=== PATIENT | male | born 1940 | race Caucasian/White ===

== ENCOUNTER 2019-01-06 08:35 | Day surgery (SDC) | payer MEDICARE ==
[~2019-01-06] VITALS: Ht 172.7 cm; Wt 97.1 kg
[~2019-01-06 08:35] MED LIST: ASPI81TA26 PO; ATOR1TAB21 PO; BALANCED SALT IRRIGATION SOLUTION 500ML BAG (FOR OR EYE MACHINE) As Ordered ONE; CEFUROXIME 1MG/0.1ML INTRACAMERAL INJ As Ordered ONE; CHLO125TA PO; DUOVISC (0.50ML VISCOAT/0.55ML PROVISC) OPHTH KIT As Ordered ONE; GABA600T4 PO; LEVO50TA5 PO; LIDOCAINE 0.75%/EPINEPHRINE 0.025% IN BSS 1ML SYR INTRACAMERAL (OR ONLY) As Ordered ONE; LISI-1046 PO; METF-791 PO; NITR0.4S14 PO; OFLOXACIN 0.3 % (OCUFLOX) OPTH SOL 5ML OS ONE; OXYB10TA23 PO; PANT20TA2 PO; PHENYLEPHRINE 2.5% OPHTH SOL 2ML OS ONE; POTA1TAB23 PO; POVIDONE-IODINE 5% OPHTH PREP SOL 30ML As Ordered ONE; PRESCAP PO; PROPARACAINE 0.5% OPHTH SOL 15ML OS ONE; TIZA2TA PO; TROPICAMIDE 1% OPHTH SOLN 2ML OS ONE; VITACAP8 PO
[2019-01-06] MEDS ORDERED: MIDAZOLAM INJ 2 MG/2 ML VIAL (J2250) As Ordered ONE (10:03)
[2019-01-06] MEDS ORDERED: fentaNYL 100 MCG/2 ML INJECTION (J3010) As Ordered ONE (10:03)
[2019-01-06 10:55] VITALS: BP 144/73
[2019-01-06] MEDS ORDERED: ONDANSETRON 4MG/2ML VIAL (J2405) IV PRN (11:00)
--- NOTE | 2019-01-07 17:29 | RO ---
DATE OF PROCEDURE: 01/06/2019 PREOPERATIVE DIAGNOSIS: 1. Visually significant nuclear sclerotic cataract left eye. POSTOPERATIVE DIAGNOSIS: 1. Visually significant nuclear sclerotic cataract left eye. PROCEDURE: 1. Cataract extraction with use of phacoemulsification and placement of intraocular lens, AU00T0, 21.0 D, left eye. SURGEON: Alirio Casiano DO FINISHER MAP AND CHART: None. ANESTHESIA: Local with monitored anesthesia care (MAC). COMPLICATIONS: None. POSTOPERATIVE CONDITION: Stable. INDICATIONS FOR SURGERY: 1. Blurred vision affecting patients activities of daily living. DESCRIPTION OF PROCEDURE: The patient was seen in the preoperative area and properly identified. The correct operative eye was identified and marked. The patient received topical anesthetic, antibiotics, and topical dilating drops. The patient was then transferred to the operating room. The correct side was re-identified, and a time-out was performed. The eye was prepped and draped in a sterile fashion. The eyelids were isolated with Tegaderm tape, and the lids were held open with an adjustable speculum. A 1.0 mm paracentesis incision was made. Intraocular preservative-free Shugarcaine was then injected into the anterior chamber. Viscoelastic was then injected into the anterior chamber through the paracentesis. Using a 2.4 mm sharp-tipped keratome, the anterior chamber was entered via a temporal clear cornea incision. A continuous curvilinear capsulorrhexis was created with Utrata forceps. Hydrodissection was performed with balanced salt solution (BSS) on a blunt cannula until the nucleus was able to rotate freely. The crystalline lens was phacoemulsified and aspirated. Irrigation/aspiration was used to remove the cortical material. Cohesive viscoelastic was placed into the capsular bag to deepen it. The implant was placed into the capsular bag and allowed to unfold. Placement was confirmed by visualizing the anterior capsulorrhexis. Irrigation/aspiration was used to remove the viscoelastic. The clear corneal incision was hydrated with BSS on a blunt cannula. The lens was well positioned. The incisions were then tested for leaks and found to be negative. The eye was then palpated for appropriate pressure and adjusted accordingly with BSS. The eyelid speculum was then carefully removed. A shield was placed over the eye. The patient tolerated the procedure well and was discharged to the recovery unit in a stable condition.
== END 2019-01-06 11:10 | disposition home or self-care (01) ==
LOC: M SDC 08:35
PROVIDERS: ATTEND Ophthalmology
DX: H25.12 Age-related nuclear cataract, left eye (principal); I10 Essential (primary) hypertension; E78.49 Other hyperlipidemia; E03.9 Hypothyroidism, unspecified; E11.9 Type 2 diabetes mellitus without complications; I71.4 Abdominal aortic aneurysm, without rupture; M10.9 Gout, unspecified; Z79.82 Long term (current) use of aspirin; Z79.899 Other long term (current) drug therapy; K21.9 Gastro-esophageal reflux disease without esophagitis; F41.9 Anxiety disorder, unspecified; N40.0 Benign prostatic hyperplasia without lower urinary tract symptoms
CPT/HCPCS: 66984; J2250; J3010; V2632

== ENCOUNTER 2019-01-20 11:25 | Day surgery (SDC) | payer MEDICARE ==
[~2019-01-20] VITALS: Ht 170.2 cm; Wt 98.4 kg
[~2019-01-20 11:25] MED LIST changes: -LIDOCAINE 0.75%/EPINEPHRINE 0.025% IN BSS 1ML SYR INTRACAMERAL (OR ONLY) As Ordered ONE; +LIDOCAINE 1% SDV 5 ML VIAL As Ordered ONE; +OFLOXACIN 0.3 % (OCUFLOX) OPTH SOL 5ML OD ONE; -OFLOXACIN 0.3 % (OCUFLOX) OPTH SOL 5ML OS ONE; +OXYB10TA2 PO; -OXYB10TA23 PO; +PHENYLEPHRINE 2.5% OPHTH SOL 2ML OD ONE; -PHENYLEPHRINE 2.5% OPHTH SOL 2ML OS ONE; +PROPARACAINE 0.5% OPHTH SOL 15ML OD ONE; -PROPARACAINE 0.5% OPHTH SOL 15ML OS ONE; +TROPICAMIDE 1% OPHTH SOLN 2ML OD ONE; -TROPICAMIDE 1% OPHTH SOLN 2ML OS ONE
[2019-01-20] MEDS ORDERED: MIDAZOLAM INJ 2 MG/2 ML VIAL (J2250) As Ordered ONE (12:36)
[2019-01-20] MEDS ORDERED: fentaNYL 100 MCG/2 ML INJECTION (J3010) As Ordered ONE (12:36)
[2019-01-20 14:50] VITALS: BP 171/83
--- NOTE | 2019-01-22 20:41 | RO ---
DATE OF PROCEDURE: 01/20/2019 PREOPERATIVE DIAGNOSIS: 1. Visually significant nuclear sclerotic cataract right eye. POSTOPERATIVE DIAGNOSIS: 1. Visually significant nuclear sclerotic cataract right eye. PROCEDURE: 1. Cataract extraction with use of phacoemulsification and placement of intraocular lens, AU00T0, 20.5 D, right eye. SURGEON: Alirio Casiano DO MORNING NEWS ANCHOR: None. ANESTHESIA: Local with monitored anesthesia care (MAC). COMPLICATIONS: None. POSTOPERATIVE CONDITION: Stable. INDICATIONS FOR SURGERY: 1. Blurred vision affecting patients activities of daily living. DESCRIPTION OF PROCEDURE: The patient was seen in the preoperative area and properly identified. The correct operative eye was identified and marked. The patient received topical anesthetic, antibiotics, and topical dilating drops. The patient was then transferred to the operating room. The correct side was re-identified, and a time-out was performed. The eye was prepped and draped in a sterile fashion. The eyelids were isolated with Tegaderm tape, and the lids were held open with an adjustable speculum. A 1.0 mm paracentesis incision was made. Intraocular preservative-free Shugarcaine was then injected into the anterior chamber. Viscoelastic was then injected into the anterior chamber through the paracentesis. Using a 2.4 mm sharp-tipped keratome, the anterior chamber was entered via a temporal clear cornea incision. A continuous curvilinear capsulorrhexis was created with Utrata forceps. Hydrodissection was performed with balanced salt solution (BSS) on a blunt cannula until the nucleus was able to rotate freely. The crystalline lens was phacoemulsified and aspirated. Irrigation/aspiration was used to remove the cortical material. Cohesive viscoelastic was placed into the capsular bag to deepen it. The implant was placed into the capsular bag and allowed to unfold. Placement was confirmed by visualizing the anterior capsulorrhexis. Irrigation/aspiration was used to remove the viscoelastic. The clear corneal incision was hydrated with BSS on a blunt cannula. The lens was well positioned. The incisions were then tested for leaks and found to be negative. The eye was then palpated for appropriate pressure and adjusted accordingly with BSS. The eyelid speculum was then carefully removed. A shield was placed over the eye. The patient tolerated the procedure well and was discharged to the recovery unit in a stable condition.
== END 2019-01-20 15:05 | disposition home or self-care (01) ==
LOC: M SDC 11:25
PROVIDERS: ATTEND Ophthalmology
DX: H25.11 Age-related nuclear cataract, right eye (principal); E11.9 Type 2 diabetes mellitus without complications; K21.9 Gastro-esophageal reflux disease without esophagitis; I10 Essential (primary) hypertension; I71.4 Abdominal aortic aneurysm, without rupture; N40.0 Benign prostatic hyperplasia without lower urinary tract symptoms; F41.9 Anxiety disorder, unspecified; Z79.82 Long term (current) use of aspirin; Z79.84 Long term (current) use of oral hypoglycemic drugs; E03.9 Hypothyroidism, unspecified
CPT/HCPCS: 66984; J2250; J3010; V2632

== ENCOUNTER 2019-12-29 14:10 | Inpatient (IN) | payer MEDICARE ==
[~2019-12-29] VITALS: Ht 172.7 cm; Wt 96.2 kg
[~2019-12-29 14:10] MED LIST changes: -BALANCED SALT IRRIGATION SOLUTION 500ML BAG (FOR OR EYE MACHINE) As Ordered ONE; -CEFUROXIME 1MG/0.1ML INTRACAMERAL INJ As Ordered ONE; -DUOVISC (0.50ML VISCOAT/0.55ML PROVISC) OPHTH KIT As Ordered ONE; -LIDOCAINE 1% SDV 5 ML VIAL As Ordered ONE; -LISI-1046 PO; +LISI2.5T2 PO; -METF-791 PO; +METF-838 PO; -OFLOXACIN 0.3 % (OCUFLOX) OPTH SOL 5ML OD ONE; -OXYB10TA2 PO; +OXYB10TA23 PO; -PANT20TA2 PO; +PANT20TA6 PO; -PHENYLEPHRINE 2.5% OPHTH SOL 2ML OD ONE; -POVIDONE-IODINE 5% OPHTH PREP SOL 30ML As Ordered ONE; -PROPARACAINE 0.5% OPHTH SOL 15ML OD ONE; -TROPICAMIDE 1% OPHTH SOLN 2ML OD ONE
[2019-12-29] MEDS ORDERED: ONDANSETRON 4MG/2ML VIAL IV ONE (14:45)
[2019-12-29 15:30] LABS: BASO # 0.1 10^3/uL (0.0-0.2); BASO % 0.3 % (0.0-1.0); EOS % 0.1 % (0.0-3.0); HEMOGLOBIN 11.8 g/dl (13.5-17.5); LYMPH # 1.2 10^3/uL (1.5-5.0); LYMPH % 5.4 % (24.0-44.0); MEAN CORPUSCULAR HEMOGLOBIN 29.6 pg (27.0-33.0); MEAN CORPUSCULAR HGB CONC 31.1 g/dl (32.0-36.5); MEAN CORPUSCULAR VOLUME 95.5 fl (80.0-96.0); MONO % 4.7 % (0.0-5.0); NEUTROPHILS # 19.2 10^3/uL (1.5-8.5); NEUTROPHILS % 88.2 % (36.0-66.0); PLATELET COUNT, AUTOMATED 345 10^3/uL (150-450); RED BLOOD COUNT 3.98 10^6/uL (4.30-6.10); WHITE BLOOD COUNT 21.7 10^3/uL (4.0-10.0)
[2019-12-29] MEDS ORDERED: ISOVUE-370 76% 100ML VIAL As Ordered ONE (15:34)
[2019-12-29 15:50] LABS: ALBUMIN 3.2 GM/DL (3.2-5.2); BILIRUBIN,DIRECT 0.1 MG/DL (0.0-0.2); BILIRUBIN,TOTAL 0.3 MG/DL (0.2-1.0)
[2019-12-29] MEDS: MORPHINE 2 MG/ML 1ML VIAL (J2270) IV PRN ×2 (15:54→16:41)
--- NOTE | 2019-12-29 16:23 | REPVR ---
PROCEDURE INFORMATION: Exam: CT Angiography Abdomen and Pelvis With Contrast Exam date and time: 12/29/2019 3:30 PM Age: 79 years old Clinical indication: Pain and condition or disease; Arterial aneurysm; Without rupture; Abdominal pain; Generalized; Additional info: Known aaa, R/O dissection TECHNIQUE: Imaging protocol: Computed tomographic angiography of the abdomen and pelvis with intravenous contrast material. 3D rendering (Not supervised by radiologist): MIP and/or 3D reconstructed images were created by the technologist. Radiation optimization: All CT scans at this facility use at least one of these dose optimization techniques: automated exposure control; mA and/or kV adjustment per patient size (includes targeted exams where dose is matched to clinical indication); or iterative reconstruction. Contrast material: ISOVUE 370; Contrast volume: 100 ml; Contrast route: INTRAVENOUS (IV); COMPARISON: No relevant prior studies available. FINDINGS: Lungs: Is mild dependent atelectasis. Aorta: The infrarenal aorta is aneurysmal measuring 4.7 x 4.6 cm in diameter. No dissection. No rupture. Celiac trunk and mesenteric arteries: No occlusion or significant stenosis. Renal arteries: No occlusion or significant stenosis. Right iliac arteries: No occlusion or significant stenosis. Left iliac arteries: No occlusion or significant stenosis. Liver: There is an 11 mm left lobe hypodensity within the liver likely a cyst within the limits of arterial phase scanning. Gallbladder and bile ducts: The gallbladder is normal.No calcified calculi. Normal bile ducts. Pancreas: The pancreas is normal. Spleen: The spleen is normal. Adrenals: The adrenals are normal. The adrenals are normal. Kidneys and ureters: There is a left renal hemorrhage. Series 401 images 55-57 demonstrate a renal hypodensity. Lateral to this is extensive subcapsular hematoma which has ruptured into the perinephric space and into the retroperitoneum. There is a fat containing area within the area of hemorrhage which may be an underlying mass. As well seen on series 402 images 47 to 52 there is hyperdensity within the hemorrhage likely extravasated contrast indicating active bleeding. The focal subcapsular hematoma measures up to 11 cm. The blood than ruptures into the retroperitoneum extending inferiorly into the pelvis. Stomach and bowel: There are colonic diverticula. No bowel wall thickening or distention. Appendix: The appendix is well visualized and is normal. Intraperitoneal space: See "Kidneys and ureters" finding. Lymph nodes: Unremarkable. No enlarged lymph nodes. Bladder: There is diffuse bladder wall thickening. No focal wall thickening identified. No calculus. Reproductive: Unremarkable as visualized. Bones/joints: There is multilevel osteophytes in the lumbar spine. Ankylosis of the spine is seen extending from the thoracic spine, superior to the area scanned, inferiorly to reach L1. There is an acute fracture across the anterior cortex of T8. This extends inferiorly and posteriorly to reach the inferior endplate of T8. No extension through the posterior cortex. No displacement. No additional fractures are seen. 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 Soft tissues: Unremarkable IMPRESSION: 1. Very large, 11 cm, subcapsular hematoma with rupture into the retroperitoneum. There are foci of apparent extravasated contrast which would indicate active bleeding. This appears secondary to a hemorrhagic mass which contains fat most consistent with an angiomyolipoma. 2. There is an acute fracture of the T8 vertebra. 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 No displacement. Correlate for any history of recent trauma. 3. 4.7 cm infrarenal aortic aneurysm without rupture or dissection. THIS REPORT CONTAINS FINDINGS THAT MAY BE CRITICAL TO PATIENT CARE. The findings of large left renal hemorrhagic mass with subcapsular hematoma, active bleeding and retroperitoneal extension were verbally communicated via telephone conference with IRINEO MELÉNDEZ at 4:08 p.m. EDT on 12/29/2019, prior to finalizing report.. The findings were acknowledged and understood.. Additional clinical information obtained from , indicates there has been a recent scan, not available for my review which demonstrated a left renal mass which contains fat. There was no hemorrhage reported on the prior report. Electronically signed by: Sylvester Bailey On 12/29/2019 16:23:21 PM
[2019-12-29] MEDS ORDERED: MORPHINE 4 MG/ML 1ML VIAL/SYRINGE (J2270) IV PRN (18:45)
[2019-12-29] MEDS ORDERED: ATOR40TA75 PO (19:29)
[2019-12-29] MEDS ORDERED: PROAAER10 INH (19:29)
[2019-12-29] MEDS ORDERED: fentaNYL 100 MCG/2 ML INJECTION (J3010) IV PRN (20:00)
[2019-12-29] MEDS ORDERED: ACETAMINOPHEN TAB 650MG DOSE (2X325MG) PO PRN (20:15)
[2019-12-29] MEDS ORDERED: MOM 30ML SUSPENSION UDC PO PRN (20:15)
[2019-12-29] MEDS: GABAPENTIN 300 MG CAP PO SCH (21:00)
[2019-12-29 21:29] LABS: INR 1.06
[2019-12-29 21:30] LABS: ALBUMIN 3.4 GM/DL (3.2-5.2); ALT/SGPT 27 U/L (12-78); BILIRUBIN,TOTAL 0.4 MG/DL (0.2-1.0); BLOOD UREA NITROGEN 17 MG/DL (7-18); CALCIUM LEVEL 9.6 MG/DL (8.8-10.2); CARBON DIOXIDE LEVEL 28 MEQ/L (21-32); CHLORIDE LEVEL 104 MEQ/L (98-107); CREATININE FOR GFR 1.62 MG/DL (0.70-1.30); FERRITIN 126 NG/ML (26-388); GLUCOSE, FASTING 180 MG/DL (70-100); IRON (FE) 26 UG/DL (65-175); PERCENT SATURATION 9.3 % (19.7-50.0); POTASSIUM SERUM 4.5 MEQ/L (3.5-5.1); SODIUM LEVEL 138 MEQ/L (136-145); TOTAL IRON BINDING CAPACITY 279 UG/DL (250-450); TOTAL PROTEIN 6.5 GM/DL (6.4-8.2)
[2019-12-29 21:50] VITALS: BP 167/77
[2019-12-29 22:00] VITALS: BP 150/74
[2019-12-29] MEDS ORDERED: LR 1,000 ML IV SCH (22:45)
[2019-12-29 23:00] VITALS: BP 116/56
[2019-12-29] MEDS ORDERED: GLUCOSE 4GM CHEW TABLET PO PRN (23:00)
[2019-12-29] MEDS ORDERED: DEXTROSE 50% 50 ML SYRINGE IV PRN (23:00)
[2019-12-29] MEDS ORDERED: GLUCAGON INJ 1MG VIAL SC PRN (23:00)
[2019-12-29] MEDS ORDERED: NITROGLYCERIN 0.4 MG SUBL TABLET SL PRN (23:00)
--- NOTE | 2019-12-29 23:03 | HPEPDOC ---
[facility] Medical History & Physical Date of Admission Dec 29, 2019 Date of Service: Dec 29, 2019 Primary Care Physician: Rich Damian MD Attending Physician: WERNER AMAYA MD History and Physical TIME OF SERVICE: 800PM CHIEF COMPLAINT: back pain HISTORY OF PRESENT ILLNESS: This 79 yr old M presented w c/o of 10/10 in severity terrible back pain which he went on to describe as the worst pain Antoinette had in my life for about 2-3 weeks. The back and side pain improved to 7/10 after receiving morphine in the ER, is constant, aching in nature and worse when he moves his legs. This morning the pain was so bad that he felt dizzy, and passed out for about 1.5 min. He denies hitting his head but admits to landing on his back. He takes ASA. REVIEW OF SYSTEMS: 12 point review of systems negative except as listed in HPI PAST MEDICAL/ SURGICAL HISTORY: Left Renal angiomyolipoma AAA COPD Chronic CAD / hx of [place] in 2011 Dyslipidemia Pre-DM Chronic Back pain 2/2 OA CKD 3 Hypothyroidism Obesity Cataract Surgery SOCIAL HISTORY: -Tobacco quit / -Alcohol / - Drugs FAMILY HISTORY: CAD / DM / Cancer / Hypothyroidism ALLERGIES: Please see below. HOME MEDICATIONS: Please see below. PHYSICAL EXAMINATION: VITAL SIGNS: Please see below. GENERAL APPEARANCE: well-nourished / well developed / NAD HEENT: EOMI/ MMM&P CARDIOVASCULAR: tachycardic HR 100 -103 during exam /NMRG LUNGS: CTAB on RA ABDOMEN: obese / soft & NT w palpation MUSCULOSKELETAL: has difficulties sitting up without assistance bc of back pain / RADHA x 4 extremities / back is not tender with palpation INTEGUMENT: no bruises on back / no generalized pallor NEUROLOGICAL: CN 2-12 grossly intact/ speech not dysarthric PSYCHIATRIC: A&O x3 able to understand and follow all commands LABORATORY DATA: 12/29/19 15:09 Immature Granulocyte % (Auto) 1.3, Neutrophils (%) (Auto) 88.2H, Lymphocytes (%) (Auto) 5.4L, Monocytes (%) (Auto) 4.7, Eosinophils (%) (Auto) 0.1, Basophils (%) (Auto) 0.3, Neutrophils # (Auto) 19.2H, Lymphocytes # (Auto) 1.2L, Monocytes # (Auto) 1.0H, Eosinophils # (Auto) 0.0, Basophils # (Auto) 0.1, Nucleated Red Blood Cells % (auto) 0.0, Total Bilirubin 0.3, Direct Bilirubin 0.1, Aspartate Amino Transf (AST/SGOT) 21, Alanine Aminotransferase (ALT/SGPT) 26, Alkaline Phosphatase 91, Total Protein 6.0L, Albumin 3.2, Albumin/Globulin Ratio 1.1, Lipase 68L 12/29/19 20:54: Total Bilirubin 0.4, Aspartate Amino Transf (AST/SGOT) 24, Alanine Aminotransferase (ALT/SGPT) 27, Alkaline Phosphatase 95, Total Protein 6.5, Albumin 3.4, Albumin/Globulin Ratio 1.1, Prothrombin Time 14.0, Prothromb Time International Ratio 1.06, Anion Gap 6L, Glomerular Filtration Rate 44.0, Lactic Acid Level 5.0*H, Calcium Level 9.6, Iron Level 26L, Total Iron Binding Capacity 279, Transferrin % Saturation 9.3L, Ferritin 126 IMAGING: CT angio abdomen 1. Very large, 11 cm, subcapsular hematoma with rupture into the retroperitoneum. There are foci of apparent extravasated contrast which would indicate active bleeding. This appears secondary to a hemorrhagic mass which contains fat most consistent with an angiomyolipoma. 2. There is an acute fracture of the T8 vertebra. 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 No displacement. Correlate for any history of recent trauma. 3. 4.7 cm infrarenal aortic aneurysm without rupture or dissection. MICROBIOLOGY: 12/29/19 Blood Culture, Received Pending ASSESSMENT: is a 79 yr old w a hx of CKD 3 and left renal angiomyolipoma who presented w c/o acute worsening of his back pain and was found to have a subcapsular hematoma. PLAN: 1. Subcapsular hematoma / Left Renal angiomyolipoma Plan: admit to ICU / f/u serial Hg, coags / NPO w IVF / Uro consult / IR consult 2. 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 Acute blood loss anemia Plan: f/u serial Hg / Iron studies / type and cross match 4. Syncope Plan: telemetry / orthostats / IVF / f/u EKG & trop 5. SIRS SIRS criteria tachycardia & leukocytosis Plan: f/u UA, blood cx, lactic acid 6. 4.7 cm AAA Plan: day time team to consult Vascular 7. CKD 3 Plan: f/u BMP, UA ulytes, phosphorus, uric acid, PTH, vitamin & Hep panel / hold metformin and lisionpril to reduce risk of LAITH 8. COPD Plan: albuterol PRN 9. Chronic CAD / hx of [place] in 2011 Plan: hold ASA 10. Pre-DM Plan: FSBS, SSI w hypoglycemia protocol, A1C, metformin on hold 11. Dyslipidemia Plan: statin 12. Hypothyroidism Plan: levothyroxine 13. Chronic Back pain 2/2 OA Plan: pain meds 14. Obesity BMI 31.4 complicates care Plan: f/u w PCP for sleep apnea screening DVT Px w SCDs LATE ENTRY #Lactic Acidosis UA & blood cx pending Plan: monitor vitals / c/w IVF / trend lactic acid Home Medications Scheduled Albuterol Sulfate (Proair Hfa) 8.5 Gm Hfa.aer.ad, 2 PUFFS INH BID TAKES NOON/HS Aspirin (Aspirin EC) 81 Mg Tablet.dr, 81 MG PO DAILY Atorvastatin Calcium (Atorvastatin Calcium) 40 Mg Tablet, 40 MG PO DAILY Gabapentin (Gabapentin) 600 Mg Tablet, 600 MG PO TID Levothyroxine Sodium (Levothyroxine Sodium) 50 Mcg Tablet, 50 MCG PO DAILY TAKES AT NOON Lisinopril (Lisinopril) 2.5 Mg Tablet, 2.5 MG PO DAILY Metformin HCl (Metformin HCl ER) 500 Mg Tab.er.24h, 500 MG PO TID WITH MEALS Oxybutynin Chloride (Oxybutynin Chloride ER) 10 Mg Tab.er.24, 10 MG PO DAILY Potassium Chloride (Potassium Chloride) 10 Meq Tablet.er, 10 MEQ PO BID TAKES AM/NOON Tizanidine HCl (Tizanidine HCl) 2 Mg Tablet, 2 MG PO QHS Vit A/Vit C/Vit E/Zinc/Copper (Preservision Areds Softgel) 1 Each Capsule, 1 CAP PO BID TAKES AM/NOON Vitamin B Complex (Vitamin B Complex) 1 Each Capsule, 1 CAP PO DAILY Scheduled PRN Nitroglycerin (Nitroglycerin) 0.4 Mg Tab.subl, 0.4 MG PO PRN PRN for CHEST PAIN Allergies Coded Allergies: No Known Allergies (Verified , 01/20/19) A-FIB/CHADSVASC A-FIB History Current/History of A-Fib/PAF?: No Current PO Anticoag Therapy: No WERNER AMAYA MD Dec 29, 2019 23:03
[2019-12-29 23:26] LABS: TROPONIN I < 0.02 NG/ML (< 0.10)
[2019-12-30] VITALS (29 sets, daily range): BP systolic 102–161; BP diastolic 54–84
[2019-12-30 04:21] LABS: HEMATOCRIT 30.4 % (42.0-52.0); HEMOGLOBIN 9.6 g/dl (13.5-17.5); MEAN CORPUSCULAR HEMOGLOBIN 29.6 pg (27.0-33.0); MEAN CORPUSCULAR HGB CONC 31.6 g/dl (32.0-36.5); MEAN CORPUSCULAR VOLUME 93.8 fl (80.0-96.0); PLATELET COUNT, AUTOMATED 280 10^3/uL (150-450); RED BLOOD COUNT 3.24 10^6/uL (4.30-6.10); WHITE BLOOD COUNT 16.6 10^3/uL (4.0-10.0)
[2019-12-30 04:50] LABS: CALCIUM LEVEL 8.9 MG/DL (8.8-10.2); CREATININE FOR GFR 1.75 MG/DL (0.70-1.30); GLOMERULAR FILTRATION RATE 40.2 (>42); MAGNESIUM LEVEL 1.8 MG/DL (1.8-2.4); POTASSIUM SERUM 5.1 MEQ/L (3.5-5.1)
[2019-12-30 04:52] LABS: PHOSPHORUS LEVEL 4.6 MG/DL (2.5-4.9); URIC ACID 6.8 MG/DL (3.5-7.2)
[2019-12-30 05:04] LABS: PTH INTACT 61.7 PG/ML (18.5-88.0)
[2019-12-30 05:16] LABS: HEPATITIS B SURFACE ANTIGEN NEGATIVE (NEGATIVE)
[2019-12-30 05:43] LABS: HEPATITIS C VIRUS ABY INDEX 0.2 INDEX (<0.8)
[2019-12-30 05:44] LABS: HEPATITIS B CORE ANTIBODY IGM NEGATIVE (NEGATIVE)
[2019-12-30 05:45] LABS: HEPATITIS A ANTIBODY IGM NEGATIVE (NEGATIVE)
[2019-12-30] MEDS: LEVOTHYROXINE 50MCG TABLET (0.05MG) PO SCH (05:48)
[2019-12-30 06:29] LABS: APPEARANCE, URINE CLEAR (CLEAR); BACTERIA, URINE AUTO NEGATIVE (NEGATIVE); BILIRUBIN, URINE AUTO NEGATIVE (NEGATIVE); BLOOD, URINE BLOOD NEGATIVE (NEGATIVE); COLOR, URINE YELLOW (YELLOW); GLUCOSE, URINE (UA) AUTO NEGATIVE (NEGATIVE); KETONE, URINE AUTO NEGATIVE (NEGATIVE); LEUKOCYTE ESTERASE, URINE AUTO NEGATIVE (NEGATIVE); MUCUS, URINE SMALL (NEGATIVE); NITRITE, URINE AUTO NEGATIVE (NEGATIVE); PROTEIN, URINE AUTO 1+ mg/dL (NEGATIVE); RBC, URINE AUTO 6 /HPF (0-3); SQUAMOUS EPITHELIAL CELL UR AU 4 /HPF (0-6); UROBILINOGEN, URINE AUTO 0.2 mg/dL (0.0-2.0); WBC, URINE AUTO 7 /HPF (0-3)
[2019-12-30 06:37] LABS: SPECIFIC GRAVITY URINE AUTO >1.060 (1.002-1.035)
[2019-12-30 06:43] LABS: SODIUM,RANDOM URINE < 10 MEQ/L; UREA NITROGEN RANDOM URINE 227 MG/DL
[2019-12-30] MEDS: ALBUTEROL 90 MCG/ACT 8GM HFA INHALER INH SCH ×2 (07:14→19:55)
[2019-12-30] MEDS ORDERED: fentaNYL 100 MCG/2 ML INJECTION (J3010) As Ordered ONE (07:19)
[2019-12-30] MEDS ORDERED: MIDAZOLAM INJ 2MG/2ML VIAL (J2250 PER 1MG) As Ordered ONE (07:19)
[2019-12-30] MEDS ORDERED: diphenhydrAMINE 50MG/ML VIAL (J1200) As Ordered ONE (07:19)
[2019-12-30] MEDS ORDERED: ISOVUE-300 61% 50ML VIAL As Ordered ONE ×3 (07:19→09:08)
[2019-12-30] MEDS ORDERED: LIDOCAINE 1% MDV 20ML VIAL As Ordered ONE (07:20)
[2019-12-30] MEDS ORDERED: EMBOSPHERE MICROSPHERES As Ordered ONE ×2 (08:09)
[2019-12-30] MEDS ORDERED: EMBOSPHERE MICROSPHERES 500-700UM(MICRONS) 2ML SYRINGE As Ordered ONE (08:10)
[2019-12-30] MEDS: GABAPENTIN 300 MG CAP PO SCH ×3 (11:36→20:45)
[2019-12-30] MEDS: ATORVASTATIN 20 MG TAB PO SCH (11:36)
[2019-12-30] MEDS: oxyBUTYnin *DITROPAN XL* 5 MG TABCR PO SCH (11:36)
[2019-12-30] MEDS ORDERED: ONDANSETRON 4MG/2ML VIAL IV PRN (11:45)
[2019-12-30] MEDS ORDERED: PERCOCET 5MG/325MG TAB PO PRN (11:45)
[2019-12-30] MEDS ORDERED: ALBUTEROL SULFATE 2.5 MG/0.5 ML INH NEB SOLN NEB PRN (16:30)
--- NOTE | 2019-12-30 16:31 | IPNPDOC ---
Text Note Date of Service The patient was seen on 12/30/19. NOTE SUBJECTIVE: Patient seen after he came back from IR. He says his pain is much better now. denies any nausea or vomtiing or diarrhea, No chest pain or SOB. at bedside brought his back brace and his leg brace which he uses during ambulation. PHYSICAL EXAMINATION: VITAL SIGNS: Please see below. GENERAL APPEARANCE: well-nourished / well developed / NAD HEENT: EOMI/ MMM, anicteric eyes. CARDIOVASCULAR: regular , normal S1, S2, no rub/ murmur or gallop LUNGS: CTAB on RA ABDOMEN: obese / soft & NT w palpation, Bowel sounds normal. MUSCULOSKELETAL: has difficulties sitting up without assistance bc of back pain / RADHA x 4 extremities, Has leg brace for walking. INTEGUMENT: no bruises on back / no generalized pallor NEUROLOGICAL: CN 2-12 grossly intact/ speech not dysarthric PSYCHIATRIC: A&O x3 able to understand and follow all commands Labs and radiology: reviewed Assessment and Plan: This 79 yr old M With PMH of left renal angiomyolipoma recently found out, CKD stage 3, AAA, COPD, CAD, HLD, Chronic back pain from OA, hypothyroidism, obesity who presented w c/o of /10 in severity terrible back pain which he went on to describe as the worst pain Antoinette had in my life for about 2-3 weeks. The morning of admission the pain was so bad that he felt dizzy, and passed out for about 1.5 min. He denied hitting his head but admits to landing on his back. CT scan showed Very large, 11 cm, subcapsular hematoma with rupture into the retroperitoneum. There are foci of apparent extravasated contrast which would indicate active bleeding. This appears secondary to a hemorrhagic mass which contains fat most consistent with an angiomyolipoma. There is an acute fracture of the T8 vertebra. 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 No displacement. Correlate for any history of recent trauma. 4.7 cm infrarenal aortic aneurysm without rupture or dissection. Ruptured Left Renal angiomyolipoma with subcapsular hematoma and retroperitoneal hematoma. with suspected active bleeding Patient went to IR for embolization of bleeding vessel. HH q6Hrs T8 acute fracture non displaced/ Chronic back pain with h/o back surgery possibly from the fall on his back pain control with percocet. Bowel regimen AAA 4.6x 4.7 cm stable. COPD home meds albuterol prn Diabetes hold metformin lispro as per sliding scale when eating regular diet. Chronic CAD / hx of [place] in 2011 will hold ASA for now continue statin Dyslipidemia statin CKD 3 creatinine seems to be stable will continue to monitor. Hypothyroidism Synthroid Obesity VS,Fishbone, I+O VS, Fishbone, I+O Laboratory Tests 12/29/19 15:09 12/29/19 20:54 12/30/19 04:09 Vital Signs Date Time Temp Pulse Resp B/P (MAP) Pulse Ox O2 Delivery O2 Flow Rate FiO2 12/30/19 10:25 93 20 100 Nasal Cannula 2 12/30/19 07:42 98.3 12/30/19 07:25 130/67 (88) I&O- Last 24 Hours up to 6 AM0 12/30/19 06:00 Intake Total 655 ml Output Total 350 ml Balance 305 ml DEMETRIO GRANT MD Dec 30, 2019 11:02
--- NOTE | 2019-12-30 18:08 | SMCUROLCON ---
Urology Consultation General Date of Consultation 12/30/19 Reason For Consultation This patient is seen for Angiomyolipoma Of L Kidney,Hematoma Of L Kidney W/. History of Present Illness This is a 79 y/o M w/ a PMH significant for a AAA, COPD, DM2, HL, CAD ([place] in 2011), CKD, and hypothyroidism, who presented to the ER yesterday w/ acute onset severe L flank pain. A CT A/P was performed and was notable for a large left renal subcapsular hematoma w/ hemorrhage into the retroperitoneum. 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 The patient was taken to IR this morning for embolization. He notes that since then his pain has been much better. He denies n/v. Denies fevers or chills. Past Medical History Medical History see HPI Surgical Hstory cataract surgery Medications Current Medications Current Medications Medications (Trade) Dose Ordered Sig/Kieran Route PRN Reason Start Time Stop Time Status Last Admin Dose Admin Acetaminophen (Tylenol Tab) 650 mg Q4H PRN PO PAIN OR FEVER 12/29/19 20:15 Albuterol Sulfate (Proventil Neb) 2.5 mg Q2HP PRN NEB SOB/WHEEZING 12/30/19 16:30 Albuterol Sulfate (Proventil, Ventolin Hfa) 2 puff RBID INH 12/30/19 08:00 12/30/19 07:14 Atorvastatin Calcium (Lipitor) 40 mg DAILY PO 12/30/19 09:00 12/30/19 11:36 Dextrose (Dextrose 50%) 25 ml ASDIRECTED PRN IV SEE LABEL COMMENTS 12/29/19 23:00 Fentanyl Citrate (Sublimaze) 25 mcg Q1H PRN IV pain 12/29/19 20:00 12/29/19 22:05 Gabapentin (Neurontin) 600 mg TID PO 12/29/19 21:00 12/30/19 16:15 Glucagon (Glucagon) 1 mg ASDIRECTED PRN SC SEE LABEL COMMENTS 12/29/19 23:00 Glucose (Glucose) 16 GM ASDIRECTED PRN PO SEE LABEL COMMENTS 12/29/19 23:00 Home Med (Med Rec Complete!) ASDIRECTED XX 12/29/19 19:30 8/27/20 19:31 DC Lactated Ringer's 1,000 ml @ 100 mls/hr Q10H IV 12/29/19 22:45 12/30/19 13:36 DC 12/29/19 22:45 Levothyroxine Sodium (Synthroid) 50 mcg DAILY@0600 PO 12/30/19 06:00 12/30/19 05:48 Magnesium Hydroxide (Milk Of Magnesia) 30 ml DAILY PRN PO CONSTIPATION 12/29/19 20:15 Morphine Sulfate (Morphine Sulfate Inj) 2 mg Q30M PRN IV MODERATE PAIN (PS 5-7) 12/29/19 14:45 12/29/19 16:41 DC 12/29/19 16:41 Morphine Sulfate (Morphine Sulfate Inj) 4 mg Q30M PRN IV SEVERE PAIN (PS 8-10) 12/29/19 18:45 12/29/19 22:01 DC 12/29/19 18:45 Nitroglycerin (Nitrostat (1/ 150)) 0.4 mg Q5MP PRN SL CHEST PAIN 12/29/19 23:00 Ondansetron HCl (ZOFRAN INJection) 4 mg Q8HP PRN IV NAUSEA OR VOMITING 12/30/19 11:45 Oxybutynin Chloride (Ditropan Xl) 10 mg DAILY PO 12/30/19 09:00 12/30/19 11:36 Oxycodone/ Acetaminophen (Percocet 5mg/ 325mg Tablet) 1 tab Q6HP PRN PO MILD/MODERATE PAIN (PS 1-7) 12/30/19 16:30 Oxycodone/ Acetaminophen (Percocet 5mg/ 325mg Tablet) 2 tab Q6HP PRN PO SEVERE PAIN (PS 8-10) 12/30/19 11:45 12/30/19 11:55 Senna/Docusate Sodium (Senokot S) 2 tab BID PO 12/30/19 21:00 Allergies Allergies: Coded Allergies: No Known Allergies (Verified , 01/20/19) Review of Systems Constitutional: Denies: Fever, Chills, Sweats, Weakness, Malaise Pulmonary: Denies: Dyspnea, Cough Cardiovascular: Denies Chest Pain, Denies Palpitations Gastrointestinal: Reports: Abdominal Pain (left LLQ) Genitourinary: Denies: Dysuria, Frequency, Incontinence, Hematuria Musculoskeletal: Reports: Back Pain (left flank) Neurological: Reports: Weakness Physical Examination General Exam: Alert, No Acute Distress Chest Exam: Normal air movement Heart Exam: Regular Rhythm Abdomen Exam: Soft, Tenderness (mild LLQ), Other (no ecchymosis) Skin Exam: Nl turgor and temperature Neuro Exam: Normal Speech Psych Exam: Mental status NL, Mood NL Vital Signs/I&O Vital Signs Date Time Temp Pulse Resp B/P (MAP) Pulse Ox O2 Delivery O2 Flow Rate FiO2 12/30/19 17:00 92 18 106/57 (73) 99 Nasal Cannula 2.0 12/30/19 16:00 97.7 I&O- Last 24 Hours up to 6 AM 12/30/19 06:00 Intake Total 655 ml Output Total 350 ml Balance 305 ml Laboratory Data 24H Labs Laboratory Tests 2 12/29/19 20:54: Prothrombin Time 14.0, Prothromb Time International Ratio 1.06, Anion Gap 6L, Glomerular Filtration Rate 44.0, Lactic Acid Level 5.0*H, Calcium Level 9.6, Iron Level 26L, Total Iron Binding Capacity 279, Transferrin % Saturation 9.3L, Ferritin 126, Total Bilirubin 0.4, Aspartate Amino Transf (AST/SGOT) 24, Alanine Aminotransferase (ALT/SGPT) 27, Alkaline Phosphatase 95, Troponin I < 0.02, Total Protein 6.5, Albumin 3.4, Albumin/Globulin Ratio 1.1 12/29/19 23:59: Lactic Acid Level 4.1*H 12/30/19 04:09: Anion Gap 7L, Glomerular Filtration Rate 40.2L, Calcium Level 8.9, Nucleated Red Blood Cells % (auto) 0.0, Uric Acid 6.8, Phosphorus Level 4.6, Magnesium Level 1.8, 25-Hydroxy Vitamin D Total 12.0L, Parathyroid Hormone (Intact) 61.7, Hepa titis A IgM Antibody NEGATIVE, Hepatitis B Surface Antigen NEGATIVE, Hepatitis B Core IgM Antibody NEGATIVE, Hepatitis C Antibody Index 0.2 12/30/19 05:55: Urine Color YELLOW, Urine Appearance CLEAR, Urine pH 5.0, Urine Specific [place] >1.060H, Urine Protein 1+H, Urine Glucose (Auto)(UA) NEGATIVE, Urine Ketones (Auto) NEGATIVE, Urine Blood NEGATIVE, Urine Nitrite NEGATIVE, Urine Bilirubin NEGATIVE, Urine Urobilinogen 0.2, Urine Leukocyte Esterase (Auto) NEGATIVE, Urine WBC (Auto) 7H, Urine RBC (Auto) 6H, Urine Hyaline Casts (Auto) 0, Urine Bacteria (Auto) NEGATIVE, Urine Squamous Epithelial Cells 4, Urine Mucus (Auto) SMALL, Urine Sperm (Auto) , Urine Random Creatinine 191.0, Urine Random Sodium < 10, Urine Random Urea Nitrogen 227 12/30/19 06:40: Lactic Acid Followup at 4 Hours 2.2*H CBC/BMP Laboratory Tests 12/29/19 20:54 12/30/19 04:09 12/30/19 14:54 Microbiology Microbiology 12/29/19 Blood Culture, Received Pending Assessment This is a 79 y/o M admitted for a ruptured 5cm L renal AML, s/p embolization earlier today. His pain is better. His Hb and vitals are stable. Plan - recommend bedrest for today - follow Hb q6hrs - if Hb remains stable, can ambulate tomorrow - will follow MILENA SILVESTRE MD Dec 30, 2019 18:08
[2019-12-30 20:05] LABS: HEMATOCRIT 24.6 % (42.0-52.0); HEMOGLOBIN 7.6 g/dl (13.5-17.5)
[2019-12-30] MEDS ORDERED: NS 1,000 ML IV STA (20:38)
[2019-12-30] MEDS: SENOKOT S TAB PO SCH (20:45)
[2019-12-30] MEDS ORDERED: NS 500 ML IV ONE (20:45)
[2019-12-30] MEDS ORDERED: MEROPENEM INJ 1 GM in IV 1 EA IV ONE (22:15)
[2019-12-30] MEDS ORDERED: NS 1,000 ML IV SCH (22:30)
[2019-12-30 22:38] LABS: BASO # 0.1 10^3/uL (0.0-0.2); BASO % 0.4 % (0.0-1.0); EOS # 0.1 10^3/uL (0.0-0.5); EOS % 0.6 % (0.0-3.0); LYMPH # 1.5 10^3/uL (1.5-5.0); LYMPH % 12.1 % (24.0-44.0); MEAN CORPUSCULAR HEMOGLOBIN 29.9 pg (27.0-33.0); MEAN CORPUSCULAR HGB CONC 30.7 g/dl (32.0-36.5); MEAN CORPUSCULAR VOLUME 97.2 fl (80.0-96.0); MONO # 1.1 10^3/uL (0.0-0.8); MONO % 8.7 % (0.0-5.0); NEUTROPHILS # 9.8 10^3/uL (1.5-8.5); NEUTROPHILS % 77.3 % (36.0-66.0); PLATELET COUNT, AUTOMATED 229 10^3/uL (150-450); RED BLOOD COUNT 2.51 10^6/uL (4.30-6.10); WHITE BLOOD COUNT 12.7 10^3/uL (4.0-10.0)
[2019-12-31] VITALS (15 sets, daily range): BP systolic 115–168; BP diastolic 58–80
[2019-12-31 02:38] LABS: HEMATOCRIT 33.4 % (42.0-52.0)
[2019-12-31 02:48] LABS: HEMOGLOBIN 10.6 g/dl (13.5-17.5)
[2019-12-31 05:48] LABS: BASO # 0.1 10^3/uL (0.0-0.2); BASO % 0.4 % (0.0-1.0); EOS # 0.1 10^3/uL (0.0-0.5); EOS % 0.8 % (0.0-3.0); HEMATOCRIT 36.2 % (42.0-52.0); HEMOGLOBIN 11.5 g/dl (13.5-17.5); LYMPH # 0.9 10^3/uL (1.5-5.0); LYMPH % 6.6 % (24.0-44.0); MEAN CORPUSCULAR HEMOGLOBIN 30.2 pg (27.0-33.0); MEAN CORPUSCULAR HGB CONC 31.8 g/dl (32.0-36.5); MONO # 1.1 10^3/uL (0.0-0.8); MONO % 7.7 % (0.0-5.0); NEUTROPHILS # 11.5 10^3/uL (1.5-8.5); NEUTROPHILS % 83.4 % (36.0-66.0); PLATELET COUNT, AUTOMATED 207 10^3/uL (150-450); RED BLOOD COUNT 3.81 10^6/uL (4.30-6.10); WHITE BLOOD COUNT 13.8 10^3/uL (4.0-10.0)
[2019-12-31 06:02] LABS: CALCIUM LEVEL 8.2 MG/DL (8.8-10.2); CREATININE FOR GFR 1.45 MG/DL (0.70-1.30); POTASSIUM SERUM 4.9 MEQ/L (3.5-5.1)
[2019-12-31] MEDS: LEVOTHYROXINE 50MCG TABLET (0.05MG) PO SCH (06:14)
[2019-12-31] MEDS: ATORVASTATIN 20 MG TAB PO SCH (08:01)
[2019-12-31] MEDS: PERCOCET 5MG/325MG TAB PO PRN ×2 (08:01→20:52)
[2019-12-31] MEDS: oxyBUTYnin *DITROPAN XL* 5 MG TABCR PO SCH (08:01)
[2019-12-31] MEDS: SENOKOT S TAB PO SCH ×2 (08:01→20:53)
[2019-12-31] MEDS: GABAPENTIN 300 MG CAP PO SCH ×3 (08:01→20:52)
[2019-12-31] MEDS: cefTRIAXone SOD 2 GM in D5W MINI-BAG PLUS 50 ML IV SCH (08:02)
[2019-12-31 08:30] LABS: HEMATOCRIT 29.8 % (42.0-52.0); HEMOGLOBIN 9.6 g/dl (13.5-17.5)
[2019-12-31] MEDS: LISINOPRIL *2.5 MG* TAB PO SCH (09:16)
[2019-12-31] MEDS: ALBUTEROL 90 MCG/ACT 8GM HFA INHALER INH SCH ×2 (09:32→20:08)
[2019-12-31] MEDS ORDERED: FUROSEMIDE 40MG/4ML VIAL (J1940) IV ONE (10:00)
--- NOTE | 2019-12-31 10:43 | IPNPDOC ---
Text Note Date of Service The patient was seen on 12/31/19. NOTE SUBJECTIVE: Feeling well this morning. Denies any SOB, Low grade fever with e levated lactate, elevated WBC so will cover with antibiotics. HH at night dropped to 7.6 . This was after embolization. Received 2 units of PRBC PHYSICAL EXAMINATION: VITAL SIGNS: Please see below. GENERAL APPEARANCE: well-nourished / well developed / NAD HEENT: EOMI/ MMM, anicteric eyes. CARDIOVASCULAR: regular , normal S1, S2, no rub/ murmur or gallop LUNGS: CTAB on RA ABDOMEN: obese / soft & NT w palpation, Bowel sounds normal. MUSCULOSKELETAL: has difficulties sitting up without assistance bc of back pain / RADHA x 4 extremities, Has leg brace for walking. INTEGUMENT: no bruises on back / no generalized pallor NEUROLOGICAL: CN 2-12 grossly intact/ speech not dysarthric PSYCHIATRIC: A&O x3 able to understand and follow all commands Labs and radiology: reviewed Assessment and Plan: This 79 yr old M With PMH of left renal angiomyolipoma recently found out, CKD stage 3, AAA, COPD, CAD, HLD, Chronic back pain from OA, hypothyroidism, obesity who presented w c/o of 10/10 in severity terrible back pain which he went on to describe as the worst pain Antoinette had in my life for about 2-3 weeks. The morning of admission the pain was so bad that he felt dizzy, and passed out for about 1.5 min. He denied hitting his head but admits to landing on his back. CT scan showed Very large, 11 cm, subcapsular hematoma with rupture into the retroperitoneum. There are foci of apparent extravasated contrast which would indicate active bleeding. This appears secondary to a hemorrhagic mass which contains fat most consistent with an angiomyolipoma. There is an acute fracture of the T8 vertebra. 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 No displacement. Correlate for any history of recent trauma. 4.7 cm infrarenal aortic aneurysm without rupture or dissection. Ruptured Left Renal angiomyolipoma with subcapsular hematoma and retroperitoneal hematoma. with suspected active bleeding Patient went to IR for embolization of bleeding vessel on 12/30/19 morning. HH at night dropped to 7.6 received 2 units of PRBC. Continue to monitor HH q6Hrs. If drops again may need further embolization. Bed rest. Urology following. Low grade fever, elevated WBC. with blood in the retroperitoneum will cover with ceftriaxone. T8 acute fracture non displaced/ Chronic back pain with h/o back surgery possibly from the fall on his back pain control with percocet. Bowel regimen AAA 4.6x 4.7 cm stable. COPD home meds albuterol prn Diabetes hold metformin lispro as per sliding scale when eating regular diet. FS AC and HS Chronic CAD / hx of [place] in 2011 will hold ASA for now continue statin Dyslipidemia statin CKD 3 creatinine seems to be stable will continue to monitor. Hypothyroidism Synthroid Obesity VS,Fishbone, I+O VS, Fishbone, I+O Laboratory Tests 12/30/19 14:54 12/30/19 19:42 12/31/19 02:18 12/31/19 05:34 12/31/19 08:12 Vital Signs Date Time Temp Pulse Resp B/P (MAP) Pulse Ox O2 Delivery O2 Flow Rate FiO2 12/31/19 09:16 128/63 12/31/19 09:00 99 91 Nasal Cannula 1.0 12/31/19 08:31 18 12/31/19 08:00 98.7 I&O- Last 24 Hours up to 6 AM 12/31/19 06:00 Intake Total 2738 ml Output Total 425 ml Balance 2313 ml DEMETRIO GRANT MD Dec 31, 2019 10:43
[2019-12-31] MEDS: HumaLOG INSULIN (NovoLOG) PER UNIT SC SCH ×3 (11:23→20:53)
[2019-12-31 14:13] LABS: HEMATOCRIT 33.3 % (42.0-52.0); HEMOGLOBIN 10.8 g/dl (13.5-17.5)
--- NOTE | 2019-12-31 14:40 | IPNPDOC ---
Subjective Review oF Systems Chief Complaint The patient is a 79-year-old male admitted with a reason for visit of Angiomyolipoma Of L Kidney,Hematoma Of L Kidney W/. Events since Last Encounter No acute events o/n. Denies L flank or abd pain. No n/v. No f/c/ns. Objective Physical Examination General Exam: Alert, Cooperative ABDOMEN EXAM: Soft; No: Tenderness Skin Exam: Nl turgor and temperature Neuro Exam: Normal Speech Psych Exam: Mental status NL, Mood NL Other physical findings no CVAT; no ecchymosis Vital Signs/I&O Vital Signs Date Time Temp Pulse Resp B/P (MAP) Pulse Ox O2 Delivery O2 Flow Rate FiO2 12/31/19 12:00 1.0 12/31/19 12:00 99.0 105 18 117/59 (78) 90 Nasal Cannula I&O- Last 24 Hours up to 6 AM 12/31/19 06:00 Intake Total 2738 ml Output Total 425 ml Balance 2313 ml Laboratory Data Labs 24H Laboratory Tests 2 12/30/19 19:42: Immature Granulocyte % (Auto) 0.9, Neutrophils (%) (Auto) 77.3H, Lymphocytes (%) (Auto) 12.1L, Monocytes (%) (Auto) 8.7H, Eosinophils (%) (Auto) 0.6, Basophils (%) (Auto) 0.4, Neutrophils # (Auto) 9.8H, Lymphocytes # (Auto) 1.5, Monocytes # (Auto) 1.1H, Eosinophils # (Auto) 0.1, Basophils # (Auto) 0.1, Nucleated Red Blood Cells % (auto) 0.0, Lactic Acid Level 3.9*H 12/31/19 02:18: Lactic Acid Level 1.8 12/31/19 05:34: Immature Granulocyte % (Auto) 1.1, Neutrophils (%) (Auto) 83.4H, Lymphocytes (%) (Auto) 6.6L, Monocytes (%) (Auto) 7.7H, Eosinophils (%) (Auto) 0.8, Basophils (%) (Auto) 0.4, Neutrophils # (Auto) 11.5H, Lymphocytes # (Auto) 0.9L, Monocytes # (Auto) 1.1H, Eosinophils # (Auto) 0.1, Basophils # (Auto) 0.1, Nucleated Red Blood Cells % (auto) 0.0, Anion Gap 5L, Glomerular Filtration Rate 50.0, Calcium Level 8.2L CBC/BMP Laboratory Tests 12/30/19 14:54 12/30/19 19:42 12/31/19 02:18 12/31/19 05:34 12/31/19 08:12 12/31/19 14:02 Microbiology Microbiology 12/29/19 Blood Culture - Preliminary, Resulted No growth after 24 hours . All specim... Assessment/Plan Date Seen The patient was seen on 12/31/19. Patient Summary This is a 79 y/o M admitted for a ruptured 5cm L renal AML, PPD1 s/p IR embolization. His Hb dropped to 7.6 yesterday evening. After 2u PRBC it went up to 11.5 at 5am today and then dropped again to 9.6 at 8am. His BP has remained stable throughout this. His Hb was just checked within the last 30 minutes and it came back at 10.8. He has very good UOP s/p 40mg lasix IV. Plan/VTE VTE Prophylaxis Ordered?: Yes VTE Exclusion Pharmacological: N/A:VTE Prophy Ordered Plan - keep bedrest through tomorrow morning - if Hb remains stable, he can start ambulating then - continue following Hb trend (scheduled again at 9pm and then in the am) - if it appears that his AML is bleeding again based on a downtrending Hb, I would recommend transfer to [facility] for another embolization MILENA SILVESTRE MD Dec 31, 2019 14:40
[2019-12-31 20:41] LABS: HEMATOCRIT 30.9 % (42.0-52.0); HEMOGLOBIN 10.2 g/dl (13.5-17.5); MEAN CORPUSCULAR HEMOGLOBIN 30.1 pg (27.0-33.0); MEAN CORPUSCULAR VOLUME 91.2 fl (80.0-96.0); PLATELET COUNT, AUTOMATED 205 10^3/uL (150-450); RED BLOOD COUNT 3.39 10^6/uL (4.30-6.10); WHITE BLOOD COUNT 14.2 10^3/uL (4.0-10.0)
[2020-01-01] VITALS: BP 146/73
[2020-01-01 04:00] VITALS: BP 162/78
[2020-01-01 05:43] LABS: BASO # 0.1 10^3/uL (0.0-0.2); BASO % 0.5 % (0.0-1.0); EOS # 0.2 10^3/uL (0.0-0.5); EOS % 1.7 % (0.0-3.0); HEMATOCRIT 32.3 % (42.0-52.0); HEMOGLOBIN 10.4 g/dl (13.5-17.5); LYMPH # 1.3 10^3/uL (1.5-5.0); LYMPH % 9.8 % (24.0-44.0); MEAN CORPUSCULAR HEMOGLOBIN 29.4 pg (27.0-33.0); MEAN CORPUSCULAR HGB CONC 32.2 g/dl (32.0-36.5); MEAN CORPUSCULAR VOLUME 91.2 fl (80.0-96.0); MONO # 1.2 10^3/uL (0.0-0.8); NEUTROPHILS # 10.3 10^3/uL (1.5-8.5); NEUTROPHILS % 78.2 % (36.0-66.0); PLATELET COUNT, AUTOMATED 208 10^3/uL (150-450); RED BLOOD COUNT 3.54 10^6/uL (4.30-6.10); WHITE BLOOD COUNT 13.2 10^3/uL (4.0-10.0)
[2020-01-01] MEDS: LEVOTHYROXINE 50MCG TABLET (0.05MG) PO SCH (05:58)
[2020-01-01 06:05] LABS: CALCIUM LEVEL 8.4 MG/DL (8.8-10.2); CREATININE FOR GFR 1.26 MG/DL (0.70-1.30); GLOMERULAR FILTRATION RATE 58.8 (>42); POTASSIUM SERUM 4.1 MEQ/L (3.5-5.1)
[2020-01-01 08:00] VITALS: BP 172/78
[2020-01-01] MEDS: HumaLOG INSULIN (NovoLOG) PER UNIT SC SCH ×4 (08:20→21:00)
[2020-01-01] MEDS: cefTRIAXone SOD 2 GM in D5W MINI-BAG PLUS 50 ML IV SCH (08:20)
[2020-01-01] MEDS: SENOKOT S TAB PO SCH ×2 (08:21→21:07)
[2020-01-01] MEDS: ATORVASTATIN 20 MG TAB PO SCH (08:21)
[2020-01-01] MEDS: GABAPENTIN 300 MG CAP PO SCH ×3 (08:21→21:05)
[2020-01-01] MEDS: oxyBUTYnin *DITROPAN XL* 5 MG TABCR PO SCH (08:22)
[2020-01-01] MEDS: LISINOPRIL *2.5 MG* TAB PO SCH (08:22)
--- NOTE | 2020-01-01 08:47 | IPNPDOC ---
Text Note Date of Service The patient was seen on 01/01/20. NOTE SUBJECTIVE: Feeling well this morning. complaining of some cough. HH stable, has not had a bowel movement since admission. No fever or chills, no chest pain or sob. No abdominal pain, Back pain is controlled with current pain meds. PHYSICAL EXAMINATION: VITAL SIGNS: Please see below. GENERAL APPEARANCE: well-nourished / well developed / NAD HEENT: EOMI/ MMM, anicteric eyes. CARDIOVASCULAR: regular , normal S1, S2, no rub/ murmur or gallop LUNGS: few crackles at the bases. ABDOMEN: obese / soft & NT w palpation, Bowel sounds normal. MUSCULOSKELETAL: RADHA x 4 extremities, Has leg brace for walking. INTEGUMENT: no bruises on back / no generalized pallor NEUROLOGICAL: CN 2-12 grossly intact/ speech not dysarthric PSYCHIATRIC: A&O x3 able to understand and follow all commands Labs and radiology: reviewed Assessment and Plan: This 79 yr old M With PMH of left renal angiomyolipoma recently found out, CKD stage 3, AAA, COPD, CAD, HLD, Chronic back pain from OA, hypothyroidism, obesity who presented w c/o of 10/10 in severity terrible back pain which he went on to describe as the worst pain Antoinette had in my life for about 2-3 weeks. The morning of admission the pain was so bad that he felt dizzy, and passed out for about 1.5 min. He denied hitting his head but admits to landing on his back. CT scan showed Very large, 11 cm, subcapsular hematoma with rupture into the retroperitoneum. There are foci of apparent extravasated contrast which would indicate active bleeding. This appears secondary to a hemorrhagic mass which contains fat most consistent with an angiomyolipoma. There is an acute fracture of the T8 vertebra. 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 No displacement. Correlate for any history of recent trauma. 4.7 cm infrarenal aortic aneurysm without rupture or dissection. Ruptured Left Renal angiomyolipoma with subcapsular hematoma and retroperitoneal hematoma. Patient went to IR for embolization of bleeding vessel on 12/30/19 morning. HH at night dropped to 7.6 received 2 units of PRBC after procedure. HH now stable for 24 hours. Urology following. Out of bed to chair. Low grade fever, elevated WBC. with blood in the retroperitoneum will cover with ceftriaxone. T8 acute fracture non displaced/ Chronic back pain with h/o back surgery possibly from the fall on his back pain control with percocet. Bowel regimen AAA 4.6x 4.7 cm stable. COPD home meds albuterol tid Diabetes hold metformin lispro as per sliding scale when eating regular diet. Hypertension on lisinopril. FS AC and HS Chronic CAD / hx of [place] in 2011 continue statin and restart ASA Dyslipidemia statin CKD 3 creatinine seems to be stable will continue to monitor. Hypothyroidism Synthroid Obesity VS,Fishbone, I+O VS, Fishbone, I+O Laboratory Tests 12/31/19 14:02 12/31/19 20:17 01/01/20 05:17 Vital Signs Date Time Temp Pulse Resp B/P (MAP) Pulse Ox O2 Delivery O2 Flow Rate FiO2 01/01/20 08:22 162/78 01/01/20 04:00 2.0 01/01/20 04:00 98.9 98 24 91 Nasal Cannula I&O- Last 24 Hours up to 6 AM 01/01/20 06:00 Intake Total 1410 ml Output Total 2175 ml Balance -765 ml DEMETRIO GRANT MD Jan 01, 2020 08:47
[2020-01-01] MEDS ORDERED: FUROSEMIDE 40MG/4ML VIAL (J1940) IV ONE (09:00)
[2020-01-01] MEDS: ALBUTEROL 90 MCG/ACT 8GM HFA INHALER INH SCH ×3 (09:33→19:21)
[2020-01-01] MEDS: ASPIRIN 81 MG ENTERIC TAB PO SCH (09:36)
[2020-01-01 12:00] VITALS: BP 115/68
[2020-01-01 15:02] LABS: HEMATOCRIT 32.8 % (42.0-52.0); HEMOGLOBIN 10.7 g/dl (13.5-17.5); MEAN CORPUSCULAR HEMOGLOBIN 29.8 pg (27.0-33.0); MEAN CORPUSCULAR HGB CONC 32.6 g/dl (32.0-36.5); MEAN CORPUSCULAR VOLUME 91.4 fl (80.0-96.0); PLATELET COUNT, AUTOMATED 211 10^3/uL (150-450); RED BLOOD COUNT 3.59 10^6/uL (4.30-6.10); WHITE BLOOD COUNT 14.4 10^3/uL (4.0-10.0)
[2020-01-01 16:00] VITALS: BP 178/72
[2020-01-01 20:00] VITALS: BP 178/82
[2020-01-02] VITALS: BP 162/82
[2020-01-02 04:00] VITALS: BP 159/79
[2020-01-02 04:48] LABS: BASO # 0.1 10^3/uL (0.0-0.2); BASO % 0.5 % (0.0-1.0); EOS # 0.3 10^3/uL (0.0-0.5); EOS % 2.4 % (0.0-3.0); HEMATOCRIT 31.5 % (42.0-52.0); HEMOGLOBIN 10.2 g/dl (13.5-17.5); LYMPH # 1.4 10^3/uL (1.5-5.0); LYMPH % 11.6 % (24.0-44.0); MEAN CORPUSCULAR HEMOGLOBIN 29.4 pg (27.0-33.0); MEAN CORPUSCULAR HGB CONC 32.4 g/dl (32.0-36.5); MEAN CORPUSCULAR VOLUME 90.8 fl (80.0-96.0); MONO % 8.7 % (0.0-5.0); NEUTROPHILS # 8.8 10^3/uL (1.5-8.5); NEUTROPHILS % 75.3 % (36.0-66.0); PLATELET COUNT, AUTOMATED 220 10^3/uL (150-450); RED BLOOD COUNT 3.47 10^6/uL (4.30-6.10); WHITE BLOOD COUNT 11.6 10^3/uL (4.0-10.0)
[2020-01-02 05:18] LABS: BLOOD UREA NITROGEN 23 MG/DL (7-18); CALCIUM LEVEL 8.2 MG/DL (8.8-10.2); CARBON DIOXIDE LEVEL 30 MEQ/L (21-32); CHLORIDE LEVEL 102 MEQ/L (98-107); GLOMERULAR FILTRATION RATE > 60.0 (>42); GLUCOSE, FASTING 115 MG/DL (70-100); POTASSIUM SERUM 4.1 MEQ/L (3.5-5.1); SODIUM LEVEL 139 MEQ/L (136-145)
[2020-01-02] MEDS: LEVOTHYROXINE 50MCG TABLET (0.05MG) PO SCH (05:21)
[2020-01-02 07:23] VITALS: BP 166/80
[2020-01-02] MEDS: ALBUTEROL 90 MCG/ACT 8GM HFA INHALER INH SCH ×2 (08:18→14:37)
--- NOTE | 2020-01-02 08:59 | IPNPDOC ---
Subjective Review oF Systems Chief Complaint The patient is a 79-year-old male admitted with a reason for visit of Angiomyolipoma Of L Kidney,Hematoma Of L Kidney W/. Events since Last Encounter No acute events o/n. Denies pain. No difficulty ambulating. No f/c/ns. Objective Physical Examination General Exam: Alert, Cooperative ABDOMEN EXAM: Soft; No: Tenderness Skin Exam: Nl turgor and temperature Neuro Exam: Normal Speech Psych Exam: Mental status NL, Mood NL Other physical findings no CVAT Vital Signs/I&O Vital Signs Date Time Temp Pulse Resp B/P (MAP) Pulse Ox O2 Delivery O2 Flow Rate FiO2 01/02/20 07:23 97.9 90 20 166/80 (108) 93 01/02/20 04:00 Nasal Cannula 1.0 I&O- Last 24 Hours up to 6 AM 01/02/20 06:00 Intake Total 800 ml Output Total 2600 ml Balance -1800 ml Laboratory Data Labs 24H Laboratory Tests 2 01/01/20 14:52: Nucleated Red Blood Cells % (auto) 0.0 01/02/20 04:16: Nucleated Red Blood Cells % (auto) 0.0, Immature Granulocyte % (Auto) 1.5, Neutrophils (%) (Auto) 75.3H, Lymphocytes (%) (Auto) 11.6L, Monocytes (%) (Auto) 8.7H, Eosinophils (%) (Auto) 2.4, Basophils (%) (Auto) 0.5, Neutrophils # (Auto) 8.8H, Lymphocytes # (Auto) 1.4L, Monocytes # (Auto) 1.0H, Eosinophils # (Auto) 0.3, Basophils # (Auto) 0.1, Anion Gap 7L, Glomerular Filtration Rate > 60.0, Calcium Level 8.2L CBC/BMP Laboratory Tests 01/01/20 14:52 01/02/20 04:16 Microbiology Microbiology 12/29/19 Blood Culture - Preliminary, Resulted No Growth after 72 hours. All specime... Assessment/Plan Date Seen The patient was seen on 01/02/20. Patient Summary This is a 79 y/o M admitted for a ruptured 5cm L renal AML, PPD3 s/p IR embolization. His Hb is stable. He has no pain. Plan/VTE VTE Prophylaxis Ordered?: Yes VTE Exclusion Pharmacological: N/A:VTE Prophy Ordered Plan - ok for discharge home - patient advised to avoid heavy lifting or strenuous activity for the next month - my office will schedule his f/u so that he is seen in 2 wks MILENA SILVESTRE MD Jan 02, 2020 08:59
[2020-01-02] MEDS: SENOKOT S TAB PO SCH (09:00)
[2020-01-02] MEDS ORDERED: lisinopriL 5 MG TAB PO SCH (09:00)
[2020-01-02] MEDS: cefTRIAXone SOD 2 GM in D5W MINI-BAG PLUS 50 ML IV SCH (09:00)
[2020-01-02] MEDS: oxyBUTYnin *DITROPAN XL* 5 MG TABCR PO SCH (09:01)
[2020-01-02] MEDS: ATORVASTATIN 20 MG TAB PO SCH (09:01)
[2020-01-02] MEDS: HumaLOG INSULIN (NovoLOG) PER UNIT SC SCH ×3 (09:01→17:05)
[2020-01-02] MEDS: GABAPENTIN 300 MG CAP PO SCH ×2 (09:03→16:13)
[2020-01-02 09:04] VITALS: BP 166/80
[2020-01-02] MEDS: ASPIRIN 81 MG ENTERIC TAB PO SCH (09:04)
[2020-01-02 12:00] VITALS: BP 151/72
[2020-01-02 16:00] VITALS: BP 182/98
[2020-01-02] MEDS ORDERED: LISI2.5T2 PO (16:45)
[2020-01-02] MEDS ORDERED: CEFD300CAP PO (16:45)
--- NOTE | 2020-01-10 23:24 | DS.PDOC ---
Discharge Summary General Date of Admission Dec 29, 2019 at 20:12 Date of Discharge 01/02/20 Discharge Summary PROCEDURES PERFORMED DURING STAY: IR embolization in the left renal DISCHARGE DIAGNOSES: Ruptured Left Renal angiomyolipoma with subcapsular hematoma and retroperitoneal hematoma. Acute blood loss anemia Fall at home with T8 acute fracture non displaced/ Chronic back pain with h/o back surgery SECONDARY DIAGNOSIS: Left renal angiomyolipoma, CKD stage 3, AAA, COPD, CAD, HLD, Diabetes, Chronic back pain from OA, hypothyroidism, obesity, Urge incontinence COMPLICATIONS/CHIEF COMPLAINT: Angiomyolipoma Of L Kidney,Hematoma Of L Kidney W/. HOSPITAL COURSE: This 79 yr old M With PMH of left renal angiomyolipoma recently found out, CKD stage 3, AAA, COPD, CAD, HLD, Chronic back pain from OA, hypothyroidism, obesity who presented w c/o of 10/10 in severity terrible back pain which he went on to describe as the worst pain Antoinette had in my life for about 2-3 weeks. The morning of admission the pain was so bad that he felt dizzy, and passed out for about 1.5 min. He denied hitting his head but admits to landing on his back. CT scan showed Very large, 11 cm, subcapsular hematoma with rupture into the retroperitoneum. There are foci of apparent extravasated contrast which would indicate active bleeding. This appears secondary to a hemorrhagic mass which contains fat most consistent with an angiomyolipoma. There is an acute fracture of the T8 vertebra. 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 No displacement. Correlate for any history of recent trauma. 4.7 cm infrarenal aortic aneurysm without rupture or dissection. Ruptured Left Renal angiomyolipoma with subcapsular hematoma and retroperitoneal hematoma. Patient went to IR for embolization of bleeding vessel on 12/30/19 morning. HH at night dropped to 7.6 received 2 units of PRBC after procedure. HH now stable Follow up with Urology Low grade fever, elevated WBC. with blood in the retroperitoneum was given ceftriaxone in hospital discharged with cefdinir. T8 acute fracture non displaced/ Chronic back pain with h/o back surgery possibly from the fall on his back pain control with Gabapentin , tizanidine. Patient was seen by ortho and was advised TSLO brace however patient refused to use it. Follow up with ortho in 2 weeks AAA 4.6x 4.7 cm stable. COPD home meds albuterol tid Diabetes restart metformin Hypertension uncontrolled on lisinopril. Dose increased. Chronic CAD / hx of [place] in 2011 continue statin and restart ASA Dyslipidemia statin CKD 3 creatinine seems to be stable will continue to monitor. Hypothyroidism Synthroid Obesity DISCHARGE MEDICATIONS: Please see below. ALLERGIES: Please see below. PHYSICAL EXAMINATION ON DISCHARGE: VITAL SIGNS: Please see below. GENERAL APPEARANCE: well-nourished / well developed / NAD HEENT: EOMI/ MMM, anicteric eyes. CARDIOVASCULAR: regular , normal S1, S2, no rub/ murmur or gallop LUNGS: few crackles at the bases. ABDOMEN: obese / soft & NT w palpation, Bowel sounds normal. MUSCULOSKELETAL: RADHA x 4 extremities, Has leg brace for walking. INTEGUMENT: no bruises on back / no generalized pallor NEUROLOGICAL: CN 2-12 grossly intact/ speech not dysarthric PSYCHIATRIC: A&O x3 able to understand and follow all commands LABORATORY DATA: Please see below. ACTIVITY: [As tolerated]. DIET: Carb consistent. DISCHARGE PLAN: DISPOSITION: 01 Home, Self-Care. DISCHARGE INSTRUCTIONS: Dr Trevin ca in 7 to 10 days PMD in [address] Koch in 1 to 2 weeks. DISCHARGE CONDITION: [Stable]. TIME SPENT ON DISCHARGE: 35 minutes. Vital Signs/I&Os Vital Signs Label Value Date Time Patient Temperature 97.6 degrees F 01/02/20 1600 Temperature Source Temporal 01/02/20 1600 Respiratory Rate 20 bpm 01/02/20 1600 Blood Pressure Assessment 182/98 (126) 01/02/20 1600 Bedside Pulse Oximetry 95 % 01/02/20 1600 Laboratory Data CBC/BMP Item Value Date Time White Blood Count 11.6 10^3/uL H 01/02/20 0416 Red Blood Count 3.47 10^6/uL L 01/02/20 0416 Hemoglobin 10.2 g/dl L 01/02/206 Hematocrit 31.5 % L 01/02/20 0416 Mean Corpuscular Volume 90.8 fl 01/02/20 0416 Mean Corpuscular Hemoglobin 29.4 pg 01/02/206 Mean Corpuscular Hemoglobin Concent 32.4 g/dl 01/02/20 041 Red Cell Distribution Width 13.4 % 01/02/20415 Platelet Count 220 10^3/uL 01/02/20415 Sodium Level 139 MEQ/L 01/02/20415 Potassium Level 4.1 MEQ/L 01/02/20415 Chloride Level 102 MEQ/L 01/02/20415 Carbon Dioxide Level 30 MEQ/L 01/02/20415 Anion Gap 7 MEQ/L L 01/02/20415 Blood Urea Nitrogen 23 MG/DL H 01/02/20415 Creatinine 1.10 MG/DL 01/02/20415 Glomerular Filtration Rate > 60.0 01/02/20415 Fasting Glucose 115 MG/DL H 01/02/20415 Calcium Level 8.2 MG/DL L 01/02/20415 Discharge Medications Scheduled Albuterol Sulfate (Proair Hfa) 8.5 Gm Hfa.aer.ad, 2 PUFFS INH BID, (Reported) TAKES NOON/HS Aspirin (Aspirin EC) 81 Mg Tablet.dr, 81 MG PO DAILY, (Reported) Atorvastatin Calcium (Atorvastatin Calcium) 40 Mg Tablet, 40 MG PO DAILY, (Rep orted) Cefdinir (Cefdinir) 300 Mg Capsule, 1 CAP PO BID Gabapentin (Gabapentin) 600 Mg Tablet, 600 MG PO TID, (Reported) Levothyroxine Sodium (Levothyroxine Sodium) 50 Mcg Tablet, 50 MCG PO DAILY, (Reported) TAKES AT NOON Lisinopril (Lisinopril) 2.5 Mg Tablet, 5 MG PO DAILY Metformin HCl (Metformin HCl ER) 500 Mg Tab.er.24h, 500 MG PO TID, (Reported) WITH MEALS Oxybutynin Chloride (Oxybutynin Chloride ER) 10 Mg Tab.er.24, 10 MG PO DAILY, (Reported) Potassium Chloride (Potassium Chloride) 10 Meq Tablet.er, 10 MEQ PO BID, (Reported) TAKES AM/NOON Tizanidine HCl (Tizanidine HCl) 2 Mg Tablet, 2 MG PO QHS, (Reported) Vit A/Vit C/Vit E/Zinc/Copper (Preservision Areds Softgel) 1 Each Capsule, 1 CAP PO BID, (Reported) TAKES AM/NOON Vitamin B Complex (Vitamin B Complex) 1 Each Capsule, 1 CAP PO DAILY, (Reported) Scheduled PRN Nitroglycerin (Nitroglycerin) 0.4 Mg Tab.subl, 0.4 MG PO PRN PRN for CHEST PAIN, (Reported) Allergies Coded Allergies: No Known Allergies (Verified , 01/20/19) DEMETRIO GRANT MD Jan 10, 2020 23:23
--- NOTE | 2020-01-11 10:09 | ECGEPIP ---
[facility] - ED Test Date: 2019-12-29 Pat Name: DEANNA HDEZ Department: Room: [place] [address] Gender: Male Condominium Manager: deni : 1940 Requested By: BENNETT Lincoln Order Number: [id number] Reading MD: Sammie Aguirre Measurements Intervals [place] Rate: 105 P: 7 OR: 141 QRS: 1 QRSD: 93 T: 37 QT: 324 QTc: 429 Interpretive Statements SINUS TACHYCARDIA INCOMPLETE RIGHT BUNDLE BRANCH BLOCK ABNORMAL RHYTHM ECG SEE DOWNTIME SCANNED REPORT
--- NOTE | 2020-01-20 15:09 | ECGEPIP ---
[facility] Test Date: 2019-12-30 Pat Name: DEANNA HDEZ Department: Room: [place] [address] Gender: Male Foreclosure Paralegal: LANDEN CHRISTIEB: 1940 Requested By: WERNER AMAYA Order Number: [id number] Reading MD: Kia Blair Measurements Intervals [place] Rate: 92 P: 26 WI: 153 QRS: 3 QRSD: 93 T: 26 QT: 349 QTc: 433 Interpretive Statements SINUS RHYTHM WITH SINUS ARRHYTHMIA INCOMPLETE RIGHT BUNDLE BRANCH BLOCK BORDERLINE ECG MILD INFERIOR ST DEPRESSION WITH EXCEPTION CAN NOT EXPLAIN MILD ST ELEVATION AVL SEE SCANNED DOWNTIME REPORT
--- NOTE | 2020-01-26 13:09 | POST-OPPD ---
Postoperative Procedure Note Date Of Procedure: Dec 30, 2019 Time Of Procedure: 16:00 Full note IR left renal angiogram IR subselective left renal artery catheterization. IR superselective left renal artery micro catheterization. IR superselective left renal AML embolization. Clinical Information:Left retroperitoneal hemorrhage. 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 Physician: Dr. Vasquez Procedure: The patient was advised of the benefits, risks, and alternatives of the procedure and informed consent was obtained. A time out was performed with verification of the patient's name, MRN, site of procedure, and type of procedure to be performed. The patient was positioned in the supine position on the angiographic table. The site was prepped and draped in the usual sterile fashion. Moderate sedation was performed by the physician including the presence of an independent trained observer who assisted in monitoring the patient's level of consciousness and physiological status. Following the administration of fentanyl and Versed, the physician spent 120 minutes of continuous [id number] time with the patient. A tube bending machine operator radiograph reveals no gross abnormality. 2% lidocaine was used for local anesthesia. The right common femoral artery was accessed with a microintroducer set. A short 0.018" [place] wire was inserted and the needle was exchanged for a 4 Fr microintroducer sheath. The guidewire and dilator were removed and a 0.035" Bentson wire was placed into the abdominal aorta. A 6 Fr sheath was placed over the wire. A 5 [place] cobra catheter was advanced over the wire under fluoroscopic guidance and used to catheterize the left main renal artery. A left renal angiogram was performed and this demonstrates unremarkable main left renal artery and lobar branches. No active extravasation. Along the exterior mid pole of the left kidney there is the impression of an exophytic mass with some venous puddles. The true vascularity and intricacy of the mass is not appreciated on angiography, likely due to overlying compressing hematoma. There is a third order branch renal artery which supplies this region. A microcatheter and microwire were advanced through the diagnostic catheter and under fluoroscopy guidance were used to perform superselective catheterization of a third order branch of the left main renal artery. An angiogram was performed and this demonstrates this vessel supplies and lower pole of the left kidney and not the region of the exophytic mass. The microcatheter was retracted and in conjunction with the microwire was used to catheterize the second order midpole branch of the left renal artery. An angiogram was performed and this demonstrates the origin of the third order b ranch supplying the area of the exophytic mass. The microcatheter in conjunction with the microwire was used to super selective ly catheterize a different third branch of the main renal artery. An angiogram was performed and this demonstrates supply to the upper pole of the left kidney. This does not supply the region of the mass. The microcatheter was retracted to the second-order branch and an oblique angiogram was performed. This demonstrates the tortuous origin of the third order branch supplying the mid pole of the kidney. The catheter in conjunction with the microwire was used to subselective lady catheterize the third order branch supplying the area of the exophytic mass. An angiogram was performed and this demonstrates the catheter is occlusive in this vessel and supplies the region of the exophytic mass. There is very little forward flow from this location. Less than 1 mL of 5-700 m beads could be injected into this vessel. Beyond this no further embolization could be performed due to severe vasoconstriction and essentially collapse of the mass from the overlying hematoma. Catheter, wire and sheath were removed. A Mynx device was used to close the right groin arteriotomy. Hemostasis achieved and a sterile dressing was applied to the site. The patient tolerated the procedure well and was returned to the PRU in stable condition. EBL:Less than 5 mL Complications:None Conclusion: 1. Left renal angiogram demonstrates impression of exophytic mass off the mid pole of the left kidney without homar extravasation. Diminished vascularity of mass due to vasoconstriction and compression from overlying hematoma. 2. Successful selective and superselective micro catheterization of the distal midpole artery supplying the region of the mass with embolization. Due to vasoconstriction and compression from overlying hematoma, the true vascularity of the mass could not be appreciated on angiography and the flow dynamics were not optimal for full embolization. Patient requires IR follow-up with CT scan in 6 months time. 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 Thank you for this referral CC DEL Colunga MD Jan 26, 2020 13:09
== END 2020-01-02 18:22 | disposition home or self-care (01) | DRG 674 ==
LOC: M ED 14:10 → EDBD 14:10 → M ED INP 20:12 → ENRESERV 20:28 → M ICU 21:35 → M PCU 12-31 23:05
PROVIDERS: ADMIT Internal Medicine; ATTEND Internal Medicine Nephrology
PROC: 30233N1 Transfusion of Nonautologous Red Blood Cells into Peripheral Vein, Percutaneous Approach (ICD-10-PCS; 2019-12-30)
PROC: 04L Lower Arteries, Occlusion (ICD-10-PCS; principal; 2019-12-30 08:00)
DX: D17.71 Benign lipomatous neoplasm of kidney (principal); D62 Acute posthemorrhagic anemia; S22.069A Unspecified fracture of T7-T8 vertebra, initial encounter for closed fracture; N28.89 Other specified disorders of kidney and ureter; R58 Hemorrhage, not elsewhere classified; I71.4 Abdominal aortic aneurysm, without rupture; J44.9 Chronic obstructive pulmonary disease, unspecified; I25.10 Atherosclerotic heart disease of native coronary artery without angina pectoris; E11.9 Type 2 diabetes mellitus without complications; E03.9 Hypothyroidism, unspecified; E66.9 Obesity, unspecified; M19.90 Unspecified osteoarthritis, unspecified site; N18.3 Chronic kidney disease, stage 3 (moderate); W18.30XA Fall on same level, unspecified, initial encounter; Y92.009 Unspecified place in unspecified non-institutional (private) residence as the place of occurrence of the external cause; I25.2 Old myocardial infarction; E78.5 Hyperlipidemia, unspecified; Z87.891 Personal history of nicotine dependence; Z68.31 Body mass index [BMI] 31.0-31.9, adult